=== PATIENT | female | born 1990 | race Caucasian/White ===

== ENCOUNTER 2017-12-18 15:45 | Inpatient (IN) ==
[2017-12-18] MEDS ORDERED: ACETAMINOPHEN 325 MG TABLET PO PRN (15:51)
[2017-12-18] MEDS ORDERED: ONDANSETRON 4 MG/2 ML VIAL IV PRN (15:51)
[2017-12-18] MEDS: DEXTROSE 5% NACL 0.45% 1,000 ML IV SCH (17:52)
[2017-12-18] MEDS: PIPERACILLIN/TAZOBACTAM 3,375 MG in SODIUM CHLORIDE 0.9% 100 ML IV SCH (19:44)
[2017-12-18] MEDS: metroNIDAZOLE INJ 500 MG in PREMIX 1 EACH IV SCH (23:31)
[2017-12-19] MEDS: PIPERACILLIN/TAZOBACTAM 3,375 MG in SODIUM CHLORIDE 0.9% 100 ML IV SCH ×2 (03:33→11:13)
[2017-12-19] MEDS: metroNIDAZOLE INJ 500 MG in PREMIX 1 EACH IV SCH ×2 (07:00→10:17)
[2017-12-19] MEDS: DEXTROSE 5% NACL 0.45% 1,000 ML IV SCH (07:46)
[2017-12-19] MEDS ORDERED: PANTOPRAZOLE 40 MG TABLET PO SCH (09:00)
[2017-12-19 12:38] VITALS: BP 104/71
== END 2017-12-19 17:02 | disposition home or self-care (01) | DRG 373 ==
LOC: N.OB 16:39
PROVIDERS: ADMIT Surgery; ATTEND Surgery